=== PATIENT | female | born 1965 | race African-American/Black ===

== ENCOUNTER 2019-04-05 06:01 | Observation (INO) | payer BC ==
[~2019-04-05] VITALS: Ht 177.8 cm; Wt 66.8 kg
[~2019-04-05 06:01] MED LIST: AMLO-147 PO; BUTA1CAP38 PO; HYDR-3980 PO; METO-335 PO; TRAM50TA2 PO; TRHC5025 PO
[2019-04-05 10:30] VITALS: BP 151/97; PULSE 74
[2019-04-05 10:54] VITALS: Ht 177.8 cm; Wt 66.8 kg
[2019-04-05] MEDS ORDERED: ACETAMINOPHEN 325 MG TAB PO PRN (11:00)
[2019-04-05] MEDS ORDERED: ONDANSETRON 4 MG INJ IV PRN (11:00)
[2019-04-05] MEDS ORDERED: NACL 0.9% 3 ML SYG IV SCH (11:00)
[2019-04-05] MEDS ORDERED: POTASSIUM CHLORIDE (SR) 20 MEQ TAB PO STA (11:58)
[2019-04-05] MEDS ORDERED: NITROGLYCERIN (SL) 0.4 MG TAB SL PRN (12:00)
[2019-04-05] MEDS ORDERED: hydrALAzine 20 MG INJ IV PRN (12:00)
[2019-04-05] MEDS: HYDROCODONE/APAP (10/325) TAB PO PRN ×2 (12:19→19:32)
[2019-04-05] MEDS: AMLODIPINE 10 MG TAB PO SCH (12:20)
[2019-04-05 12:22] VITALS: BP 128/88; PULSE 85; RESP 19
[2019-04-05 15:00] VITALS: BP 131/90; PULSE 74; RESP 18
[2019-04-05] MEDS: traMADol 50 MG TAB PO PRN (16:11)
[2019-04-05 19:25] VITALS: BP 137/90; PULSE 82; RESP 17
[2019-04-05] MEDS ORDERED: ATORVASTATIN 80 MG TAB PO SCH (21:00)
[2019-04-06 00:13] VITALS: BP 132/88; PULSE 76; RESP 18
[2019-04-06 05:01] VITALS: BP 131/85; PULSE 74; RESP 17
[2019-04-06 07:33] VITALS: BP 142/72; PULSE 77; RESP 20
[2019-04-06] MEDS: HYDROCODONE/APAP (10/325) TAB PO PRN ×2 (07:50→14:10)
[2019-04-06] MEDS: AMLODIPINE 10 MG TAB PO SCH (08:13)
[2019-04-06] MEDS ORDERED: TRIAMTERENE/HCTZ (50-25) CAP PO SCH (09:00)
[2019-04-06 11:06] VITALS: BP 126/85; PULSE 83; RESP 20
[2019-04-06] MEDS: traMADol 50 MG TAB PO PRN (11:15)
[2019-04-06] MEDS ORDERED: TRIAMTERENE/HCTZ (37.5-25) CAP PO SCH (12:30)
[2019-04-06] MEDS ORDERED: MAGNESIUM SULFATE 2 GM/50 ML 50 ML IVPB ONE (15:00)
[2019-04-06] MEDS ORDERED: METOPROLOL (XL) 25 MG TAB PO SCH (15:00)
[2019-04-06] MEDS ORDERED: MAGNESIUM OXIDE 400 MG TAB PO ONE (15:00)
[2019-04-06 15:09] VITALS: BP 138/89; PULSE 83; RESP 20
== END 2019-04-06 16:20 | disposition home or self-care (01) ==
LOC: INTOOBSV 09:18 → TEL 09:18
PROVIDERS: ADMIT Internal Medicine; ATTEND Internal Medicine
DX: R07.9 Chest pain, unspecified (principal); I16.0 Hypertensive urgency; I10 Essential (primary) hypertension; R55 Syncope and collapse; M32.9 Systemic lupus erythematosus, unspecified; M79.7 Fibromyalgia; I48.91 Unspecified atrial fibrillation
CPT/HCPCS: 70450; 71100; 80048; 80053; 80061; 83036; 83735; 84100; 84436; 84443; 84479; 84484; 84703; 85025; 93005; 93306; 93880; Z7500; Z7610; 99217; G0378